=== PATIENT | male | born 1955 | race Caucasian/White ===

== ENCOUNTER 2019-04-27 18:31 | Emergency (ER) | payer OTHER ==
[~2019-04-27] VITALS: Ht 167.6 cm; Wt 68.0 kg
[2019-04-27 19:05] VITALS: BP 130/63
[2019-04-27] MEDS ORDERED: ACETAMINOPHEN EXTRA STRENGTH 500 MG TAB PO ONE (19:10)
--- NOTE | 2019-04-27 19:13 | NUR ---
WAIT AT LOBBY
--- NOTE | 2019-04-27 19:53 | NUR ---
PT TO ER BED 2
--- NOTE | 2019-04-27 20:00 | NUR ---
64 Y/O MALE C/O RUGHT EAR PAIN X 2-3DAYS. RIGHT EAR SHOWS YELLOW CRUSY DISCHARGE ON THE OUTER EAR. RATES PAIN 8/10. LUNG SOUNDS CLEAR. PT IS ABLE TO HEAR FINE. NO CHANGES OF HEARING. VSS. STEADY GAIT. NKA. PMH: HTN.
[2019-04-27] MEDS ORDERED: LIDOCAINE MPF 1% 10 MG/ML VIAL INJ ONE (20:05)
[2019-04-27] MEDS ORDERED: AMOXIL/CLAVULANATE 875/125 MG 1 TAB PO ONE (20:05)
[2019-04-27] MEDS ORDERED: HYDROcodone/APAP 5/325 MG 1 TAB TAB PO ONE (20:05)
[2019-04-27] MEDS ORDERED: AMOXIL/CLAVULANATE 875/125 MG 1 TAB ONE (20:56)
[2019-04-27 21:32] VITALS: BP 130/63
--- NOTE | 2019-04-27 21:32 | NUR ---
Patient discharged with v/s stable. Written and verbal after care instructions given and explained. Patient alert, oriented and verbalized understanding of instructions. Ambulatory with steady gait. All questions addressed prior to discharge. ID band removed. Patient advised to follow up with PMD. Rx of AUGMENTIN, CIPRO OTIC SANGITA, NORCO given. Patient educated on indication of medication including possible reaction and side effects. Opportunity to ask questions provided and answered.
== END 2019-04-27 21:32 | disposition home or self-care (01) ==
LOC: MED 18:31
DX: H60.91 Unspecified otitis externa, right ear (principal); H60.8X1 Other otitis externa, right ear; I10 Essential (primary) hypertension
CPT/HCPCS: 96372; 99284; J2001